=== PATIENT | female | born 1990 | race Caucasian/White ===

== ENCOUNTER 2017-06-21 06:09 | Inpatient (IN) | payer MEDICAID ==
[~2017-06-21] VITALS: Ht 160 cm; Wt 100.0 kg
[2017-06-21] MEDS ORDERED: OXYTOCIN 30U/ 0.9% NaCL 500ML 500 ML IV ONE (06:11)
[2017-06-21] MEDS ORDERED: OXYTOCIN 30U/ 0.9% NaCL 500ML 500 ML IV PRN (06:11)
[2017-06-21] MEDS ORDERED: NEWBORN KIT ONE (06:12)
[2017-06-21] MEDS ORDERED: OXYTOCIN 30U/ 0.9% NaCL 500ML 500 ML ONE (06:12)
[2017-06-21] MEDS ORDERED: MISOPROSTOL 200 MCG TABLET ONE (06:13)
[2017-06-21] MEDS ORDERED: LIDOCAINE 2%, 10ML ONE (06:13)
[2017-06-21] MEDS ORDERED: LIDOCAINE-MPF 1%, 5ML ONE (06:14)
[2017-06-21 06:18] VITALS: BP 120/74
[2017-06-21] MEDS ORDERED: PLEASE ENTER ALLERGIES MC SCH (06:30)
[2017-06-21] MEDS ORDERED: FENTANYL PF 100 MCG/2ML IV PRN (06:30)
[2017-06-21] MEDS ORDERED: FENTANYL PF 100 MCG/2ML IVPush PRN (06:30)
[2017-06-21] MEDS ORDERED: ONDANSETRON 2MG/ML, 2ML IVPush PRN (06:30)
[2017-06-21 06:36] LABS: BASOPHILS % (AUTO) 1 % (0-1); EOSINOPHILS % (AUTO) 1 % (1-7); LYMPHOCYTES % (AUTO) 28 % (22-44); MEAN CORPUSCULAR HEMOGLOBIN 27.4 pg (27.0-34.8); MEAN CORPUSCULAR HGB CONC 32.6 g/dL (32.4-35.8); MEAN CORPUSCULAR VOLUME 84.2 fL (80-100); MEAN PLATELET VOLUME 8.2 fL (7.4-10.4); MONOCYTES % (AUTO) 7 % (2-9); NEUTROPHILS # (AUTO) 5.13 x10^3/uL (1.8-6.8); NEUTROPHILS % (AUTO) 63 % (42-75); PLATELET COUNT 279 x10^3/uL (130-400); RED BLOOD COUNT 4.61 x10^6/uL (3.82-5.3); RED CELL DISTRIBUTION WIDTH 16.3 % (9.6-15.2)
[2017-06-21 06:37] LABS: BASOPHILS # (AUTO) 0.09 x10^3/uL (0-0.1); EOSINOPHILS # (AUTO) 0.08 x10^3/uL (0-0.4); LYMPHOCYTES # (AUTO) 2.23 x10^3/uL (1-3.4); MD NO; MONOCYTES # (AUTO) 0.57 x10^3/uL (0.2-0.8)
[2017-06-21] MEDS: LACTATED RINGERS 1,000 ML IV SCH ×2 (07:27→13:06)
[2017-06-21] MEDS ORDERED: PREN-3 PO (07:42)
[2017-06-21] MEDS ORDERED: LACTATED RINGERS 1,000 ML IV SCH (13:47)
[2017-06-21] MEDS ORDERED: FENTANYL/BUPIV./NS/PF 250 ML EPIDCONT SCH (13:47)
[2017-06-21] MEDS ORDERED: FENTANYL/BUPIV./NS/PF 250 ML EPIDCONT ONE (13:49)
[2017-06-21] MEDS ORDERED: BUPIVACAINE/PF 0.25% ONE (13:49)
[2017-06-21] MEDS ORDERED: LACTATED RINGERS 1,000 ML IVBOLUS PRN (14:00)
[2017-06-21] MEDS ORDERED: NALOXONE 0.4 MG/ML, 1ML IVPush PRN (14:00)
[2017-06-21] MEDS ORDERED: EPHEDRINE 50 MG/ML, 1ML IVPush PRN (14:00)
[2017-06-21] MEDS: OXYTOCIN 30U/ 0.9% NaCL 500ML 500 ML IV SCH (19:28)
[2017-06-21] MEDS ORDERED: ACETAMINOPHEN 325 MG TABLET PO PRN ×3 (19:30)
[2017-06-21] MEDS ORDERED: OXYcodone/APAP 5/325MG TABLET PO PRN (19:30)
[2017-06-21] MEDS ORDERED: MISOPROSTOL 200 MCG TABLET PR PRN (19:30)
[2017-06-21] MEDS ORDERED: CARBOPROST TROMETHAMINE 250 MCG/ML, 1ML IM PRN (19:30)
[2017-06-21] MEDS ORDERED: ONDANSETRON 2MG/ML, 2ML IV PRN (19:30)
[2017-06-21] MEDS ORDERED: MEASLES,MUMPS&RUBELLA VACC/PF 0.5 ML SQ PRN (19:30)
[2017-06-21] MEDS ORDERED: DIPH,PERTUSS(ACELL),TET VAC/PF NC IM-VACC PRN (19:30)
[2017-06-21] MEDS ORDERED: MAGNESIUM HYDROXIDE 8%, 30ML UDC PO PRN (19:30)
[2017-06-21] MEDS ORDERED: CALCIUM CARBONATE 500 MG TAB.CHEW PO PRN (19:30)
[2017-06-21] MEDS ORDERED: METHYLERGONOVINE 0.2 MG/ML IM PRN (19:30)
[2017-06-21] MEDS ORDERED: BISACODYL 10 MG SUPP PR PRN (19:30)
[2017-06-21 20:09] VITALS: BP 144/68
[2017-06-21] MEDS ORDERED: IBUPROFEN 600 MG TABLET ONE (21:09)
[2017-06-21] MEDS: IBUPROFEN 600 MG TABLET PO PRN (21:12)
[2017-06-21] MEDS: DOCUSATE 100 MG CAPSULE PO PRN (22:41)
[2017-06-21 23:00] VITALS: BP 109/79
[2017-06-22] MEDS: OXYcodone/APAP 5/325MG TABLET PO PRN ×4 (01:35→16:05)
[2017-06-22 04:00] VITALS: BP 109/69
[2017-06-22] MEDS: OXYTOCIN 30U/ 0.9% NaCL 500ML 500 ML IV SCH ×3 (05:28→17:43)
[2017-06-22 05:47] LABS: BASOPHILS # (AUTO) 0.02 x10^3/uL (0-0.1); BASOPHILS % (AUTO) 0 % (0-1); EOSINOPHILS # (AUTO) 0.07 x10^3/uL (0-0.4); EOSINOPHILS % (AUTO) 1 % (1-7); LYMPHOCYTES # (AUTO) 2.64 x10^3/uL (1-3.4); LYMPHOCYTES % (AUTO) 22 % (22-44); MD NO; MEAN CORPUSCULAR HEMOGLOBIN 27.8 pg (27.0-34.8); MEAN CORPUSCULAR VOLUME 84.1 fL (80-100); MEAN PLATELET VOLUME 8.6 fL (7.4-10.4); MONOCYTES # (AUTO) 0.76 x10^3/uL (0.2-0.8); MONOCYTES % (AUTO) 6 % (2-9); NEUTROPHILS # (AUTO) 8.34 x10^3/uL (1.8-6.8); NEUTROPHILS % (AUTO) 71 % (42-75); PLATELET COUNT 254 x10^3/uL (130-400); RED BLOOD COUNT 3.96 x10^6/uL (3.82-5.3); RED CELL DISTRIBUTION WIDTH 16.2 % (9.6-15.2)
[2017-06-22] MEDS: IBUPROFEN 600 MG TABLET PO PRN ×2 (06:42→14:08)
[2017-06-22 07:30] VITALS: BP 114/78
[2017-06-22] MEDS: DOCUSATE 100 MG CAPSULE PO PRN (07:33)
[2017-06-22] MEDS ORDERED: IBUP-1222 PO (07:41)
[2017-06-22] MEDS ORDERED: PRENATAL VIT/IRON/FA 1 EACH TABLET PO SCH (09:00)
[2017-06-22 11:52] VITALS: BP 116/78
== END 2017-06-22 19:00 | disposition home or self-care (01) | DRG 775 ==
LOC: LDIP 06:09 → 2NW 21:47
PROVIDERS: ADMIT Obstetrics & Gynecology; ATTEND Obstetrics & Gynecology
PROC: 10E0XZZ Delivery of Products of Conception, External Approach (ICD-10-PCS; principal; 2017-06-21)
PROC: 3E0R3BZ Introduction of Anesthetic Agent into Spinal Canal, Percutaneous Approach (ICD-10-PCS; 2017-06-21)
PROC: 00HU33Z Insertion of Infusion Device into Spinal Canal, Percutaneous Approach (ICD-10-PCS; 2017-06-21)
DX: O69.1XX0 Labor and delivery complicated by cord around neck, with compression, not applicable or unspecified (principal); Z37.0 Single live birth; Z3A.39 39 weeks gestation of pregnancy; Z90.49 Acquired absence of other specified parts of digestive tract
CPT/HCPCS: 36415; 85025; 86850; 86900; J3490; J2590; J3010; J7120